=== PATIENT | male | born 1950 | race Caucasian/White ===

== ENCOUNTER → 2023-11-22 11:46 | Outpatient (REF) | payer MEDICARE, SELFPAY | LOC: RAD 11:46 | PROVIDERS: ATTENDING PHYSICIAN Internal Medicine | DX: J44.1 Chronic obstructive pulmonary disease with (acute) exacerbation (principal) | CPT/HCPCS: 71046 ==

== ENCOUNTER → 2024-01-09 06:33 | Outpatient (REF) | payer MEDICARE, SELFPAY ==
[2024-01-09 07:41] LABS: % Basophils 1.4 % (0-2); % Eosinophils 5.5 % (0-6); % Immature Granulocytes 0.4 % (0-0.5); % Lymphocytes 15.8 % (20.5-51.1); % Monocytes 7.5 % (1.7-9.3); % Neutrophils 69.4 % (42.2-75.2); Absolute Basophils 0.1 10^3/uL (0-0.2); Absolute Eosinophils 0.4 10^3/uL (0-0.7); Absolute Lymphocytes 1.2 10^3/uL (1.2-3.4); Absolute Monocytes 0.6 10^3/uL (0.1-0.6); Absolute Neutrophils 5.3 10^3/uL (1.4-6.5); Hematocrit 43.2 % (39.0-52.0); Hemoglobin 14.5 g/dL (13.0-18.0); Mean Corp Hgb Conc. 33.6 g/dL (33.0-37.0); Mean Corpuscular Hgb 31.3 pg (27.0-31.0); Mean Corpuscular Volume 93.3 fL (80.0-94.0); Mean Platelet Volume 11.2 fL (7.4-10.4); Nucleated Red Blood Cells % 0 % (-); Platelet Count 194 10^3/uL (130-400); Red Blood Cell Count 4.63 10^6/uL (4.70-6.10); Red Cell Dist. Width 14.2 % (11.5-14.5); White Blood Cell Count 7.6 10^3/uL (4.8-10.8)
[2024-01-09 07:47] LABS: ALT (SGPT) 12 U/L (0-50); AST (SGOT) 23 U/L (17-59); Albumin 4.2 g/dl (3.5-5.0); Alkaline Phosphatase 50 U/L (38-126); Blood Urea Nitrogen 9 mg/dl (9-20); Calcium 9.5 mg/dl (8.4-10.2); Carbon Dioxide 31 mmol/L (22-30); Chloride 98 mmol/L (98-107); Glucose 102 mg/dl (70-99); HDL Cholesterol 79 mg/dl; LDL Cholesterol, Calculated 108 mg/dl; Potassium 5.7 mmol/L (3.5-5.1); Sodium 133 mmol/L (135-145); Total Bilirubin 0.8 mg/dl (0.2-1.3); Total Cholesterol 200 mg/dl (50-199); Total Protein 6.8 g/dl (6.3-8.2); Triglyceride 68 mg/dl (10-149); Very Low Density Lipoprotein 13 mg/dl (0-30); eGFR > 60.00
[2024-01-09 07:57] LABS: Urine Albumin 1+ (Neg - Trace); Urine Bilirubin Negative (Negative); Urine Character Clear (Clear); Urine Color Yellow; Urine Glucose Negative (Negative); Urine Ketone Negative (Negative); Urine Leukocyte Negative (Negative); Urine Nitrite Negative (Negative); Urine Occult Blood Negative (Negative); Urine Specific Gravity 1.005 (<1.030); Urine Urobilinogen Negative (Neg - 1+)
[2024-01-09 08:25] LABS: Urine Red Blood Cell 0-2 /HPF (0-2); Urine White Cell 0-2 /HPF (0-5)
[2024-01-09 08:26] LABS: Urine Mucus Moderate
== END ==
LOC: REG 06:33
PROVIDERS: ATTENDING PHYSICIAN Internal Medicine
DX: I42.9 Cardiomyopathy, unspecified (principal)
CPT/HCPCS: 36415; 80053; 80061; 81003; 81015; 85025

== ENCOUNTER → 2024-04-04 13:01 | Outpatient (REF) | payer MEDICARE, SELFPAY | LOC: HWRAD 13:01 | PROVIDERS: ATTENDING PHYSICIAN Internal Medicine | DX: M79.89 Other specified soft tissue disorders (principal) | CPT/HCPCS: 76882 ==

== ENCOUNTER → 2024-04-22 13:16 | Outpatient (REF) | payer MEDICARE, SELFPAY ==
[2024-04-22 13:32] VITALS: BP 143/85; BP_SYST 86
== END ==
LOC: RADI 13:16
PROVIDERS: ATTENDING PHYSICIAN Internal Medicine
DX: C49.22 Malignant neoplasm of connective and soft tissue of left lower limb, including hip (principal)
CPT/HCPCS: 88305; 20206; 76942; 88333; 88341; 88342

== ENCOUNTER 2024-05-10 09:48 | Emergency (ER) | payer MEDICARE, SELFPAY ==
[2024-05-10 09:53] VITALS: BP 124/84
--- NOTE | 2024-05-10 10:44 | ED.GENMED ---
History of Present Illness
General
Chief Complaint: Skin Problem
Source: patient and records
Time Seen by Provider: 05/10/24 10:31
History of Present Illness
History of Present Illness:
74yoM with a history of atrial fibrillation and CHF presenting for evaluation of left calf swelling. 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
calf, measuring up to 3.9 cm in diameter. Differential diagnosis includes intramuscular myxoma, peripheral nerve sheath tumor, sarcoma, among others.' Patient had a soft tissue biopsy performed on 04/22/2024, results are still pending. Patient
reports a gradual increase in the localized swelling over the past 3 weeks since having the biopsy. He has some minor pain in the area. He takes 2 ibuprofen tabs in the morning and pain is controlled throughout the remainder of the day. He also
reports swelling in the leg that is not present in the morning but develops throughout the day. He was seen by his PCP about 1 week ago and was started on Augmentin for concern for an overlying infection. Patient has not noticed any improvement
with the antibiotics so he was sent to the ED for evaluation. Patient denies any fevers or chills. His only other symptom is fatigue which has been ongoing. No chest pain or shortness of breath.
Past History
Past History
ED Past Surgical History: None
Social History
Tobacco: Smoker
Alcohol: Daily
Personal:
Living: with family
Phy Exam
General Physical Exam
General Presentation: well appearing and no apparent distress
General age: appears stated age
General Skin: warm and dry
General Habitus: normal
General Mental: alert
General Hydration: appears well hydrated
ENT Exam
ENT Exam: normocephalic
Pulmonary Exam
Pulmonary Exam: no respiratory distress
Musculoskeletal Exam
Musculoskeletal Exam: other (Visible and palpable mass in the posterior upper L calf that is firm to touch. No significant tenderness or fluctuance. Mild surrounding erythema. There is 2+ dependent edema in the calf.)
Skin Exam
Skin Exam: warm/dry
Psychiatric Exam
Psychiatric Exam: normal mood/affect
Course
Orders/Labs/Results
Orders:
Orders
05/10/24 10:43
CT Lower Ext W/iv Cont Lt Urgent
Comment:
Reason For Exam: L calf mass
Venous Doppler Lwr Ext Left [US Periph Venous LOWER Ext LT] Urgent
Comment:
Reason For Exam: L leg swelling
05/10/24 11:54
Complete Blood Count/With Diff Urgent
Comprehensive Metabolic Panel Urgent
Abnormal Lab Results
05/10/24
11:54
RBC 3.96 L 10^6/uL
(4.70-6.10)
Hgb 12.7 L g/dL
(13.0-18.0)
Hct 37.5 L %
(39.0-52.0)
MCV 94.7 H fL
(80.0-94.0)
MCH 32.1 H pg
(27.0-31.0)
Absolute Lymphs (auto) 0.8 L 10^3/uL
(1.2-3.4)
Absolute Monos (auto) 0.7 H 10^3/uL
(0.1-0.6)
Lymphocytes % 10.8 L %
(20.5-51.1)
Monocytes % 9.8 H %
(1.7-9.3)
Sodium 132 L mmol/L
(135-145)
Chloride 95 L mmol/L
(98-107)
Carbon Dioxide 31 H mmol/L
(22-30)
Glucose 105 H mg/dl
(70-99)
Total Protein 6.2 L g/dl
(6.3-8.2)
05/10/24 11:54
11/15/24 11:54
Vital Signs
Initial and Last Documented VS:
Initial Vital Signs
Temp Pulse Resp BP Pulse Ox
98.7 F 76 16 124/84 98
05/10/24 09:53 05/10/24 09:53 05/10/24 09:53 05/10/24 09:53 05/10/24 09:53
Last Documented Vital Signs
Temp Pulse Resp BP Pulse Ox
97.5 F 82 20 141/82 98
05/10/24 14:31 05/10/24 14:31 05/10/24 14:31 05/10/24 14:31 05/10/24 14:31
MDM/Problems Addressed
Differential Diagnosis Includes:
74yoM here with L calf swelling and redness. Has a known tumor in the calf that was recently biopsied, pathology results pending. Prescribed Augmentin x 1 week by his PCP. No improvement with abx so he was sent to the ED. No f/c. No significant
pain. VSS. There is a visible and palpable mass in the L calf on exam with dependent edema in the lower extremity. LLE is neurovascularly intact. Differential diagnosis includes but is not limited to: Malignancy, edema due to mass effect, DVT, less
likely cellulitis
Initial ED plan: Check CBC CMP, venous duplex, and CT lower extremity.
*Critical Care Note
Total Time (30-74mins, 75-104mins- exclusive of procedures): Not Applicable
Update Note
Update Note:
White count is normal. Venous duplex is negative for DVT. CT shows a 6.1 cm circumscribed mass in the posterior proximal L lower leg within the subcutaneous fat and proximal gastrocnemius muscles. There is also severe diffuse edema throughout the
left lower leg. Size of the mass has increased from prior imaging (mass measured 3.9cm on ultrasound last month). Suspect edema of leg is 2/2 mass effect from the tumor. The increased blood flow is likely the cause of the erythema. No overt
signs of cellulitis on exam. I called the pathology department for an update on the biopsy results. The pathology sample was sent to the bone and soft tissue department at [facility] and results will hopefully be available early next week. I
called and spoke with patient's PCP, Dr. Montero and provided an update. He agrees that antibiotics are not indicated at this time. He is stable for discharge. Advised elevation and compression to help with swelling. Advised close f/u with PCP
next week and ED return precautions discussed. Patient and in agreement with plan. He was discharged in stable condition.
ED Attending Note
-
Portions of this chart may have been created with voice recognition software.� Occasional wrong word or��sound alike� substitutions may have occurred due to the inherent limitations of voice recognition software.
Discharge Plan
Departure
Patient Disposition: Home (Routine Discharge)
Date of Disposition: 05/10/24
Time of Disposition: 14:22
Patient with high blood pressure during this ER visit?: No
Discharge Problem:
Mass of left lower leg, Edema of left lower extremity
Instructions: Swelling
Prescriptions:
No Action
carvedilol 12.5 MG tablet
12.5 mg PO BID Qty: 180 3RF
thiamine HCl (vitamin B1) 100 MG tablet
100 mg PO DAILY
vitamin B complex 1 TAB tablet
1 tab PO DAILY
folic acid 1 MG tablet
1 mg PO DAILY
Eliquis 5 MG tablet
5 mg PO BID
omeprazole 40 mg Capsule,Delayed Release(Dr/Ec)
40 mg PO BID
albuterol sulfate 90 mcg/actuation Hfa Aerosol Inhaler
2 puff INHALATION Q6H PRN (Reason: wheezing)
Atrovent HFA 17 mcg/actuation Hfa Aerosol Inhaler
2 puff INHALATION QID
Trelegy Ellipta 200-62.5-25 mcg Blister With Device
1 inh INHALATION DAILY
turmeric
500 mg PO DAILY
Referrals:
Camron Montero MD [Family Provider] -
Activity Restrictions/Additional Instructions:
Elevate your leg and wear compression stockings to help with swelling.
Please follow-up with your family doctor next week for biopsy results. Return to the ER with any worsening symptoms, fevers, or chills.
Interventions
Interventions:
*Risk Screen - Suicide Last Done: 05/10/24 09:53
*General Assessment Last Done: 05/10/24 12:01
*Neglect/Abuse Screening Last Done: 05/10/24 09:53
ED- Fall Risk Assessment Last Done: 05/10/24 12:01
*ED COVID-19 Vaccine History Last Done: 05/10/24 12:01
*Nursing Disposition Last Done: 05/10/24 14:31
ED-Skin Assessment Last Done: 05/10/24 12:01
Discharge Date and Time
Discharge Date/Time: 05/10/24 14:35
Print Language: ITALIAN
--- NOTE | 2024-05-10 10:50 | EDRN ---
staff took the pt to ultrasound without notifying this RN and before this RN could enter the pts room and place a PIV and draw and sent lab work, this RN notified the provider, will await the pts return from CT scan
[2024-05-10 12:01] VITALS: BP 136/71; BMI 25.1
[2024-05-10 12:03] LABS: % Basophils 1.1 % (0-2); % Eosinophils 2.9 % (0-6); % Immature Granulocytes 0.4 % (0-0.5); % Lymphocytes 10.8 % (20.5-51.1); % Monocytes 9.8 % (1.7-9.3); Absolute Basophils 0.1 10^3/uL (0-0.2); Absolute Eosinophils 0.2 10^3/uL (0-0.7); Absolute Lymphocytes 0.8 10^3/uL (1.2-3.4); Absolute Monocytes 0.7 10^3/uL (0.1-0.6); Absolute Neutrophils 5.6 10^3/uL (1.4-6.5); Hematocrit 37.5 % (39.0-52.0); Hemoglobin 12.7 g/dL (13.0-18.0); Mean Corp Hgb Conc. 33.9 g/dL (33.0-37.0); Mean Corpuscular Hgb 32.1 pg (27.0-31.0); Mean Corpuscular Volume 94.7 fL (80.0-94.0); Mean Platelet Volume 10.1 fL (7.4-10.4); Nucleated Red Blood Cells % 0 % (-); Platelet Count 252 10^3/uL (130-400); Red Blood Cell Count 3.96 10^6/uL (4.70-6.10); Red Cell Dist. Width 13.2 % (11.5-14.5); White Blood Cell Count 7.5 10^3/uL (4.8-10.8)
[2024-05-10 12:19] LABS: ALT (SGPT) 16 U/L (0-50); AST (SGOT) 20 U/L (17-59); Albumin 3.5 g/dl (3.5-5.0); Alkaline Phosphatase 63 U/L (38-126); Blood Urea Nitrogen 11 mg/dl (9-20); Calcium 8.9 mg/dl (8.4-10.2); Carbon Dioxide 31 mmol/L (22-30); Chloride 95 mmol/L (98-107); Estimated Creatinine Clearance 93 ml/min; Glucose 105 mg/dl (70-99); Potassium 4.7 mmol/L (3.5-5.1); Sodium 132 mmol/L (135-145); Total Bilirubin 0.5 mg/dl (0.2-1.3); Total Protein 6.2 g/dl (6.3-8.2); eGFR > 60.00
[2024-05-10 14:31] VITALS: BP 141/82
== END 2024-05-10 14:35 | disposition home or self-care (01) ==
LOC: EMR 09:48
PROVIDERS: Physician Assistant; EMERGENCY PHYSICIAN Emergency Medicine; FAMILY PHYSICIAN Internal Medicine
DX: R60.0 Localized edema (principal); F17.200 Nicotine dependence, unspecified, uncomplicated; I48.91 Unspecified atrial fibrillation; I50.9 Heart failure, unspecified
CPT/HCPCS: 99284; 73701; 80053; 85025; 93971; Q9967

== ENCOUNTER → 2024-05-28 08:06 | Outpatient (REF) | payer MEDICARE, SELFPAY | LOC: HWRCS 08:06 | PROVIDERS: ATTENDING PHYSICIAN Internal Medicine Cardiovascular Disease; FAMILY PHYSICIAN Internal Medicine | DX: I42.9 Cardiomyopathy, unspecified (principal) | CPT/HCPCS: 93306 ==

== ENCOUNTER → 2024-05-30 11:02 | Outpatient (REF) | payer MEDICARE, SELFPAY | LOC: HWRAD 11:02 | PROVIDERS: ATTENDING PHYSICIAN Student in an Organized Health Care Education/Training Program; FAMILY PHYSICIAN Internal Medicine | DX: C49.22 Malignant neoplasm of connective and soft tissue of left lower limb, including hip (principal) | CPT/HCPCS: 71250 ==

== ENCOUNTER → 2024-07-03 10:15 | Outpatient (REF) | payer MEDICARE, SELFPAY ==
[2024-07-03 11:22] LABS: % Basophils 0.8 % (0-2); % Eosinophils 2.4 % (0-6); % Immature Granulocytes 0.6 % (0-0.5); % Lymphocytes 9.6 % (20.5-51.1); % Monocytes 11.9 % (1.7-9.3); % Neutrophils 74.7 % (42.2-75.2); Absolute Basophils 0.1 10^3/uL (0-0.2); Absolute Eosinophils 0.2 10^3/uL (0-0.7); Absolute Immature Granulocytes 0.1 10^3/uL (0-0.05); Absolute Lymphocytes 0.8 10^3/uL (1.2-3.4); Absolute Neutrophils 6.5 10^3/uL (1.4-6.5); Hematocrit 34.2 % (39.0-52.0); Hemoglobin 10.7 g/dL (13.0-18.0); Mean Corp Hgb Conc. 31.3 g/dL (33.0-37.0); Mean Corpuscular Hgb 29.1 pg (27.0-31.0); Mean Corpuscular Volume 92.9 fL (80.0-94.0); Mean Platelet Volume 9.3 fL (7.4-10.4); Nucleated Red Blood Cells % 0 % (-); Platelet Count 338 10^3/uL (130-400); Red Blood Cell Count 3.68 10^6/uL (4.70-6.10); Red Cell Dist. Width 13.8 % (11.5-14.5); White Blood Cell Count 8.7 10^3/uL (4.8-10.8)
[2024-07-03 12:11] LABS: ALT (SGPT) 18 U/L (0-50); AST (SGOT) 20 U/L (17-59); Albumin 3.2 g/dl (3.5-5.0); Alkaline Phosphatase 89 U/L (38-126); Blood Urea Nitrogen 16 mg/dl (9-20); Calcium 8.8 mg/dl (8.4-10.2); Carbon Dioxide 29 mmol/L (22-30); Chloride 90 mmol/L (98-107); Glucose 135 mg/dl (70-99); Potassium 4.8 mmol/L (3.5-5.1); Sodium 128 mmol/L (135-145); Total Bilirubin 1.6 mg/dl (0.2-1.3); Total Protein 6.2 g/dl (6.3-8.2); eGFR > 60.00
[2024-07-03 13:09] LABS: TSH 0.47 uIU/ml (0.47-4.68)
[2024-07-04 19:54] LABS: Hepatitis B Surface Antigen Negative (Negative)
[2024-07-04 20:13] LABS: Hepatitis B Core Ab, Total Negative (Negative); Hepatitis B Surface Antibody Negative; Hepatitis C Antibody Negative (Negative)
== END ==
LOC: REG 10:15
PROVIDERS: ATTENDING PHYSICIAN Specialist; FAMILY PHYSICIAN Internal Medicine
DX: C49.22 Malignant neoplasm of connective and soft tissue of left lower limb, including hip (principal); Z29.89 Encounter for other specified prophylactic measures
CPT/HCPCS: 36415; 80053; 84443; 85025; 86704; 86706; 86803; 87340